=== PATIENT | female | born 1980 | race American Indian/Alaskan Native ===

== ENCOUNTER 2016-10-27 15:33 | Emergency (ER) | payer MEDICAID ==
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
[2016-10-27] MEDS ORDERED: FUL-GLO OP ONE ×2 (18:12→18:42)
[2016-10-27] MEDS ORDERED: TETRACAINE 0.5% OU ONE (18:14)
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
[2016-10-27] MEDS ORDERED: BSS ONE (18:42)
[2016-10-27] MEDS ORDERED: TETRACAINE 0.5% ONE (18:42)
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
[2016-10-27 19:17] VITALS: BP 124/83
== END 2016-10-27 19:16 | disposition home or self-care (01) ==
LOC: ED 15:33
DX: S09.90XA Unspecified injury of head, initial encounter (principal); H11.33 Conjunctival hemorrhage, bilateral; H10.33 Unspecified acute conjunctivitis, bilateral; F17.200 Nicotine dependence, unspecified, uncomplicated; Z88.5 Allergy status to narcotic agent; W17.89XA Other fall from one level to another, initial encounter; Y93.89 Activity, other specified; Y99.9 Unspecified external cause status; Y92.89 Other specified places as the place of occurrence of the external cause
CPT/HCPCS: 70450; 70486; 81025